=== PATIENT | male | born 1990 | race Two or more races ===

== ENCOUNTER 2024-02-25 13:17 | Emergency (ER) | payer OTHER, SELFPAY ==
[2024-02-25 13:25] VITALS: BP 126/74
--- NOTE | 2024-02-25 15:31 | ED.SKININJ ---
HPI-Injury
General
Chief Complaint: Skin Surface Trauma
Source: patient
Exam Limitations: none
Time Seen by Provider: 02/25/24 15:06
History of Present Illness-Injury
Initial Injury comments:
33-year-old [id number] male presents with laceration to left palm as well as injury to left small finger. He was using a utility knife to cut a zip tie. He slipped and cut his palm on the volar aspect of the base of the index finger and
zip tie was holding up a heavy pump. The pump then fell on his small finger. He now notes a deformity to the small finger last tetanus more than 5 years ago
Phy Exam
Physical Exam
Physical Exam:
General: Well-appearing male no acute respiratory distress
HEENT: Normocephalic atraumatic
Skin: 2 cm laceration transverse direction volar left hand at the distal index finger metacarpal. This is not involving tendons. No current bleeding. No visible joint mining through the wound
Musculoskeletal exam: Patient has full active motion of the left index finger including MCP PIP and DIP joints. There is a flexion deformity of the DIP joint of the left small finger with hyperextension deformity noted of the PIP joint of the left
small finger.
Neurologic: Good sensation all fingers left hand
Vascular: Brisk capillary refill all fingers left hand
Course
Orders/Labs/Results
Orders:
Orders
02/25/24 13:29
Finger(s)/Thumb 2 View Lt [CR Finger(s)/thumb Min 2 Vw Lt] Urgent
Comment:
Reason For Exam: injury
Indicate Which Finger:: Little Finger
Vital Signs
Initial and Last Documented VS:
Initial Vital Signs
Temp Pulse Resp BP Pulse Ox
98.3 F 96 16 126/74 98
02/25/24 13:25 02/25/24 13:25 02/25/24 13:25 02/25/24 13:25 02/25/24 13:25
Last Documented Vital Signs
Temp Pulse Resp BP Pulse Ox
98.3 F 96 16 126/74 98
02/25/24 13:25 02/25/24 13:25 02/25/24 13:25 02/25/24 13:25 02/25/24 13:25
Procedures
Laceration Closure
Left Volar Hand:
Status of Wound: clean
Description of Wound Edges: sharp
Preparation: cleaned with saline
Anesthesia: 1% Lidocaine
Revision/Debridement: routine- no revision
Wound exploration: explored to base- no FB and no tendon involvement
Type of Closure: single layer closure and running stitch
Skin Closure Material: 5-0 prolene
Number of sutures: 7
MDM/Problems Addressed
Differential Diagnosis Includes:
Laceration left hand. This was irrigated with saline and closed in a running fashion using 5-0 Prolene sutures. Unrelated to this injury, there is a flexion deformity of the DIP joint of the left small finger. X-rays were taken. There is no
fracture or dislocation. Exam consistent with a mallet finger. He was placed in an extension splint and advised to wear this at all times until seen by the hand specialist. Tetanus vaccine updated. Wound care instructions were given stable for
discharge
*Critical Care Note
Total Time (30-74mins, 75-104mins- exclusive of procedures): Not Applicable
ED Attending Note
-
Portions of this chart may have been created with voice recognition software.� Occasional wrong word or��sound alike� substitutions may have occurred due to the inherent limitations of voice recognition software.
Discharge Plan
Departure
Patient Disposition: Home (Routine Discharge)
Date of Disposition: 02/25/24
Time of Disposition: 15:35
Patient with high blood pressure during this ER visit?: No
Discharge Problem:
Laceration, Mallet deformity of little finger
Instructions: Laceration Repair With Stitches (DC)
Referrals:
NONE,* [Family Provider] -
Andre Lackey MD [Active] -
Activity Restrictions/Additional Instructions:
Keep clean. Have sutures removed in 12 to 14 days. Keep splint on the left small finger at all times. Follow-up with hand specialist for further evaluation regarding her tendon injury.
Interventions
Interventions:
*Risk Screen - Suicide Last Done: 02/25/24 13:25
*General Assessment Last Done: 02/25/24 13:25
*Neglect/Abuse Screening Last Done: 02/25/24 13:25
ED-Skin Assessment Last Done: 02/25/24 13:55
Discharge Date and Time
Print Language: CHINESE
[2024-02-25] MEDS: ADACEL 0.5 ML IM (15:46)
== END 2024-02-25 15:59 | disposition home or self-care (01) ==
LOC: EMR 13:17
PROVIDERS: EMERGENCY PHYSICIAN Student in an Organized Health Care Education/Training Program
DX: S61.412A Laceration without foreign body of left hand, initial encounter (principal); M20.012 Mallet finger of left finger(s); W26.0XXA Contact with knife, initial encounter; Z23 Encounter for immunization
CPT/HCPCS: 99283; 12001; 90471; 73140; 90715

== ENCOUNTER 2025-03-08 12:02 | Emergency (ER) | payer OTHER, SELFPAY ==
[2025-03-08 12:04] VITALS: BP 130/101
[2025-03-08 12:12] VITALS: BP 98/58
--- NOTE | 2025-03-08 12:16 | ED.GENMED ---
History of Present Illness
General
Chief Complaint: Allergic Reaction
Source: patient
Exam Limitations: none
Time Seen by Provider: 03/08/25 12:09
Nursing documentation reviewed up to this point in time: agreed with
History of Present Illness
History of Present Illness:
Note:
CHIEF COMPLAINT(S)
Allergic reaction after a bee sting.
HISTORY OF PRESENT ILLNESS
The patient is a 34-year-old male who presents with symptoms following a bee sting to the right pinkie finger approximately 30 minutes prior to arrival. He reports initial symptoms of itching and tingling sensations spreading to his lips, and
generalized hot sensations particularly affecting his feet. The patient also reports mild difficulty breathing. There is swelling noted at the site of the sting. The patient has had a previous bee sting in his youth which did not result in a similar
reaction.
PAST MEDICAL AND SURIGICAL HISTORY
none
MEDICATIONS
none
PHYSICAL EXAM
General: Alert, no acute distress.
Skin: Warm, dry.
Head: Normocephalic, atraumatic.
Neck: Supple, trachea midline.
Eye, Ears, Nose, Mouth, and Throat: Oral mucosa moist.
Cardiovascular: S1 and S2 heart sounds present, no S4, no murmurs.
Respiratory: Clear bilaterally, no respiratory distress noted.
Gastrointestinal: Abdomen soft, non-tender, non-distended.
Musculoskeletal: Visible sting cage on bilateral arms, noticeable swelling of the right hand.
Neurological: Alert and oriented to person, place, time, and situation, no focal neurological deficit observed.
Psychiatric: Cooperative, appropriate mood & affect.
PROBLEM LIST
Acute:
1. Anaphylactic reaction to bee sting.
2. Swelling of right hand due to bee sting.
PLAN
1. Administration of epinephrine for the allergic reaction.
2. Prescribe an EpiPen for future incidents involving bee stings.
3. Patient will be monitored for at least two hours post-epinephrine administration to assess for any ongoing or recurring symptoms.
4. Patient education on EpiPen usage for future allergic reactions targeting symptoms like difficulty breathing or throat swelling, but not simply for urticaria unless accompanied by more severe symptoms.
DIFFERENTIAL DIAGNOSIS
The Differential Diagnosis includes, in no particular order and is not limited to:
1. Anaphylactic reaction to insect stings.
2. Allergic reaction to environmental allergens.
3. Urticaria or angioedema.
4. Asthma exacerbation.
5. Anxiety reaction.
6. Contact dermatitis.
7. Viral exanthem.
8. Systemic Inflammatory Response Syndrome (SIRS).
9. Hyperventilation.
10. Panic attack.
CARE-UPDATE
03/08/25 - 13:19
Patient reports improvement following epinephrine administration, with no breathing difficulties and resolution of hives and throat tingling. Patient is stable for discharge, and an epinephrine prescription has been sent to the pharmacy.
Disposition:
SUMMARY OF ENCOUNTER
The patient, a 34-year-old male, presented to the emergency department with an allergic reaction following a bee sting on his right pinkie finger. Symptoms included itching, tingling sensations extending to the lips, and generalized heat sensations,
particularly in the feet, along with mild respiratory difficulty. Given the presentation suggestive of anaphylaxis, immediate treatment was administered.
DISPOSITION
Discharge.
ASSESSMENT
Anaphylaxis due to bee sting.
EMERGENCY TREATMENTS ADMINISTERED
Epinephrine was administered for the allergic reaction.
PLAN
The patient was prescribed an EpiPen (epinephrine auto-injector) for self-administration in future similar incidents. Educated on its usage and importance of immediate use in case of symptoms like difficulty breathing or swelling of the throat.
PATIENT EDUCATION AND COUNSELING
The patient was advised on recognizing signs of severe allergic reactions and instructed on the proper use of an EpiPen for future events.
FOLLOW-UP INSTRUCTIONS
The patient was advised to follow up with his primary care physician for further evaluation and management.
MEDICATION RECONCILIATION
A prescription for an EpiPen was provided for emergency use in potential future allergic reactions.
MEDICAL DECISION MAKING
- Number and Complexity of Problems Addressed: Chronic conditions affecting care [History of hypertension]
- Data:
Category 1
No labs were ordered during the visit; management focused on the clinical presentation.
Category 3
- Risk:
Prescription medication was prescribed - EpiPen for potential future use.
Consideration of Admission/Observation: Escalation of care including admission/observation was considered given the complexity and risk of the patients presenting complaint, exam findings, and/or their underlying comorbidities. However, ultimately I
feel the patient is safe for outpatient management with close follow up. Reasoning: Work-up reassuring, does not reveal any acute life/organ threatening processes, patients symptoms well controlled upon reevaluation, reexamination is reassuring,
vitals are stable, patient agreeable with discharge, reliable for follow-up.
DIAGNOSIS
Anaphylactic reaction due to bee sting (T78.2XXA).
Phy Exam
Physical Exam
Physical Exam:
.
Course
Orders/Labs/Results
Orders:
Orders
03/08/25 12:13
EPINEPHrine PF [Adrenalin] 1 mg .ROUTE .STK-MED ONE
03/08/25 12:21
EPINEPHrine PF [Adrenalin] 0.3 mg IM NOW STA
Vital Signs
Initial and Last Documented VS:
Initial Vital Signs
Pulse Resp BP Pulse Ox
75 22 130/101 99
03/08/25 12:04 03/08/25 12:04 03/08/25 12:04 03/08/25 12:04
Last Documented Vital Signs
Pulse Resp BP Pulse Ox
76 21 125/70 97
03/08/25 13:00 03/08/25 13:00 03/08/25 13:00 03/08/25 13:00
*Pulse Oximetry
SaO2: 99
Oxygen Mode of Delivery: Room air
Patient hypoxic: no
*Critical Care Note
Total Time (30-74mins, 75-104mins- exclusive of procedures): 31
comment:
Critical care statement: A total of 31 minutes of critical care time was provided for this patient. This includes management of unstable vital signs, evaluation of the patient at bedside, reviewing the patient's pertinent medical records, discussion
with consultants, review of old EKGs and review of pertinent medical records. This time with separate from time utilized to perform the aforementioned documented procedures
ED Attending Note
-
Portions of this chart may have been created with voice recognition software.� Occasional wrong word or��sound alike� substitutions may have occurred due to the inherent limitations of voice recognition software.
Discharge Plan
Departure
Patient Disposition: Home (Routine Discharge)
Date of Disposition: 03/08/25
Time of Disposition: 13:18
Patient with high blood pressure during this ER visit?: Yes
Condition: Good
Discharge Problem:
Anaphylaxis
Instructions: Anaphylaxis, BLOOD PRESSURE
Prescriptions:
New
epinephrine [EpiPen 2-Patrick] 0.3 mg/0.3 mL auto-injector
0.3 mg IM ONCE PRN (Reason: anaphylaxis) Qty: 2 0RF
Referrals:
NONE,* [Family Provider, Internal Medicine]
Interventions
Interventions:
*Risk Screen - Suicide Last Done: 03/08/25 12:07
*General Assessment Last Done: 03/08/25 12:21
*Neglect/Abuse Screening Last Done: 03/08/25 12:07
*ED- Fall Risk Assessment Last Done: 03/08/25 12:21
*ED COVID-19 Vaccine History Last Done: 03/08/25 12:21
ED- Cardiac Assessment Last Done: 03/08/25 12:21
ED- Pulmonary Assessment Last Done: 03/08/25 12:21
ED-Skin Assessment Last Done: 03/08/25 12:21
Discharge Date and Time
Print Language: IRISH
[2025-03-08 12:20] VITALS: BMI 28.4
[2025-03-08] MEDS: ADRENALIN 0.3 MG IM (12:24)
[2025-03-08 13:00] VITALS: BP 125/70
== END 2025-03-08 14:00 | disposition home or self-care (01) ==
LOC: EMR 12:02
PROVIDERS: EMERGENCY PHYSICIAN Emergency Medicine
DX: T63.441A Toxic effect of venom of bees, accidental (unintentional), initial encounter (principal); T78.2XXA Anaphylactic shock, unspecified, initial encounter; I10 Essential (primary) hypertension
CPT/HCPCS: 99283; 96372